=== PATIENT | female | born 1975 | race Caucasian/White ===

== ENCOUNTER 2016-07-23 02:47 | Emergency (ER) | payer OTHER ==
[~2016-07-23] VITALS: Ht 165.1 cm; Wt 77.3 kg
[~2016-07-23 02:47] MED LIST: CETI10TA24 PO; CHOL10002 PO; FLUT1DIS IH; NORE-137 PO; VITA1TAB3 PO
[2016-07-23] MEDS ORDERED: DIPHENHYDRAMINE 50 MG/ML, 1ML IVPush ONE (03:30)
[2016-07-23] MEDS ORDERED: KETOROLAC 30 MG/1 ML IVPush ONE (03:30)
[2016-07-23] MEDS ORDERED: SODIUM CHLORIDE 0.9% 1,000ML IVBOLUS ONE (03:30)
[2016-07-23] MEDS ORDERED: ONDANSETRON 2MG/ML, 2ML IVPush ONE (03:30)
[2016-07-23] MEDS ORDERED: DIPHENHYDRAMINE 50 MG/ML, 1ML ONE (03:42)
[2016-07-23] MEDS ORDERED: KETOROLAC 30 MG/1 ML ONE (03:42)
[2016-07-23] MEDS ORDERED: ONDANSETRON 2MG/ML, 2ML ONE (03:43)
[2016-07-23 04:11] LABS: ASPARTATE AMINO TRANSFERASE 14 U/L (15-37); BLOOD UREA NITROGEN 10 mg/dL (7-18)
[2016-07-23] MEDS ORDERED: MORPHINE SULFATE 4 MG/ML, 1ML IVPush PRN (05:00)
[2016-07-23] MEDS ORDERED: MORPHINE SULFATE 4 MG/ML, 1ML ONE (05:00)
[2016-07-23 05:53] VITALS: BP 130/88
== END 2016-07-23 05:55 | disposition home or self-care (01) ==
LOC: ED 05:06
DX: G44.219 Episodic tension-type headache, not intractable (principal); E05.90 Thyrotoxicosis, unspecified without thyrotoxic crisis or storm
CPT/HCPCS: 36415; 80053; 83735; 84443; 84703; 85025; 93005; 96361; 96374; 96375; 99285; J1200; J1885; J2405; J7030